=== PATIENT | female | born 1960 | race Caucasian/White ===

== ENCOUNTER 2024-10-16 12:50 | Inpatient (IN) | payer MEDICARE, MEDICAID ==
[~2024-10-16] VITALS: Ht 167.6 cm; Wt 162.6 kg
[~2024-10-16 12:50] MED LIST: BENZ1TAB79; DIGO-31; FLUP10TA
[2024-10-16 13:21] VITALS: RESP 26
[2024-10-16] MEDS: SODIUM CHLORIDE 0.9% 1,000 ML IV ONE (13:30)
[2024-10-16] MEDS: PIPERACILLIN/TAZO 3.375G/50ML 50 ML IV ONE (13:30)
[2024-10-16 13:33] LABS: CHLORIDE 87 mEq/L (98-107); POTASSIUM 3.3 mEq/L (3.5-5.1); SODIUM 136 mEq/L (136-145)
[2024-10-16 13:34] LABS: CALCIUM 9.2 mg/dL (8.7-10.4)
[2024-10-16 13:35] LABS: BASOPHILS % 0.3 % (0.0-2.0); EOSINOPHILS % 2.4 % (0.0-5.0); HEMATOCRIT. 44.9 % (36.0-48.0); HEMOGLOBIN. 14.6 g/dL (12.0-16.0); LYMPHOCYTES % 30.6 % (20.0-50.0); MEAN CORPUSCULAR HEMOGLOBIN 31.9 pg (28.0-32.0); MEAN CORPUSCULAR HGB CONC 32.6 g/dL (31.0-37.0); MEAN CORPUSCULAR VOLUME 97.9 fL (81.0-99.0); MONOCYTES % 10.2 % (2.0-8.0); NEUTROPHILS % 56.5 % (40.0-76.0); PLATELET 112 x1000/uL (130-400); RED BLOOD CELL COUNT 4.58 mill/uL (4.2-5.4); RED CELL DISTRIBUTION WIDTH 16.9 % (11.6-14.6)
[2024-10-16 13:39] LABS: CREATININE 0.5 mg/dL (0.6-1.0); GLUCOSE 121 mg/dL (70-105); TROPONIN I HIGH SENSITIVITY 5 ng/L (3.0-34); UREA NITROGEN BLOOD 8 mg/dL (9-23)
[2024-10-16 13:41] LABS: BG BASE EXCESS 13.9 mmol/L (-2.0-3.0); BG CARBOXYHEMOGLOBIN 2.2 % (0.5-1.5); BG DEOXYHEMOGLOBIN 3.5 % (0.0-5.0); BG FRACTION INSPIRED OXYGEN 100; BG HCO3 ACT 45.3 mmol/L (21.0-28.0); BG METHEMOGLOBIN 0.3 % (0.5-1.5); BG OXYGEN SATURATION 96.4 % (94.0-98.0); BG PCO2 93.5 mmHg (32.0-45.0); BG PH 7.303 (7.350-7.450); BG PO2 92.8 mmHg (83.0-108.0); BG SAMPLE SITE RIGHT RADIAL; BG VENT MODE MASK - BIPAP
[2024-10-16 13:41] LABS: ALANINE AMINOTRANSFERASE 15 IU/L (10-49); ALBUMIN 3.7 g/dL (3.2-4.8); ASPARTATE AMINOTRANSFERASE 21 IU/L (<34); BILIRUBIN DIRECT 0.1 mg/dL (<=3.0); BILIRUBIN TOTAL 0.4 mg/dL (0.1-1.0); DIFFERENTIAL COMMENT 1; PROTEIN TOTAL 7.7 g/dL (6.0-8.3)
[2024-10-16 13:50] LABS: CARBON DIOXIDE > 40 mEq/L (21-32)
[2024-10-16 13:51] LABS: PROTHROMBIN TIME 10.4 sec (9.6-11.0)
[2024-10-16] MEDS: VANCOMYCIN 1G PREMIX 200 ML IV ONE (14:02)
[2024-10-16] MEDS ORDERED: DOCUSATE SODIUM 100MG CAPSULE PO PRN (15:15)
[2024-10-16] MEDS ORDERED: ONDANSETRON HCL 4MG/2ML INJ IV PRN (15:15)
[2024-10-16] MEDS ORDERED: GUAIFENESIN 200MG/10ML SUGAR FREE UDC PO PRN (15:15)
[2024-10-16] MEDS ORDERED: CLONIDINE 0.1MG TABLET PO PRN (15:15)
[2024-10-16] MEDS ORDERED: MAGNESIUM/ALUMINUM HYDROXIDE/SIMETHICONE 30ML UDC PO PRN (15:15)
[2024-10-16] MEDS ORDERED: IPRATROPIUM/ALBUTEROL 0.5-3(2.5)MG/3ML NEB HHN PRN (15:15)
[2024-10-16] MEDS ORDERED: DEXTROSE 50% WATER 50ML SYRINGE IV PRN (16:15)
[2024-10-16] MEDS: SODIUM CHLORIDE 0.9% 1,000 ML IV SCH (16:43)
[2024-10-16] MEDS: VANCOMYCIN 1GM/200ML PMX (BAXTER) IV NR (16:43)
[2024-10-16 17:01] LABS: TRIGLYCERIDE 103 mg/dL (0-150)
[2024-10-16 17:02] LABS: LDL CHOLESTEROL 72 mg/dL (5-100)
[2024-10-16 17:03] LABS: ALBUMIN 2.6 g/dL (3.2-4.8); CHOLESTEROL 110 mg/dL (<200); HDL CHOLESTEROL < 20 mg/dL (>65); PHOSPHORUS 3.3 mg/dL (2.5-4.9)
[2024-10-16] MEDS: ENOXAPARIN 40MG/0.4ML SYR SUBCUT SCH (17:03)
[2024-10-16] MEDS: BLOOD SUGAR DIAGNOSTIC STRIP TEST SCH (18:05)
[2024-10-16] MEDS: POTASSIUM CHLORIDE 40 MEQ in DEXT 5% WATER 250 ML IV NR (18:05)
[2024-10-16] MEDS: INSULIN LISPRO 100 UNITS/ML SUBCUT SCH (18:06)
[2024-10-16] MEDS: IPRATROPIUM/ALBUTEROL 0.5-3(2.5)MG/3ML NEB HHN SCH (18:15)
[2024-10-16 18:16] VITALS: RESP 20
[2024-10-16 18:43] VITALS: RESP 24
[2024-10-16 19:45] VITALS: RESP 24
[2024-10-16] MEDS: ACETAMINOPHEN 325MG TABLET PO PRN (20:01)
[2024-10-16 22:09] VITALS: RESP 28
[2024-10-16] MEDS: PIPERACILLIN/TAZO 3.375G/50ML 50 ML IV SCH (23:45)
[2024-10-16 23:49] VITALS: RESP 25
[2024-10-17] VITALS (17 sets, daily range): BP systolic 57–123; BP diastolic 38–87; PULSE 75–84; RESP 12–29; TEMP 35.7–36.6; O2SAT 40–98
[2024-10-17] MEDS: VANCOMYCIN 1GM/200ML PMX (BAXTER) IV SCH ×2 (04:33→13:55)
[2024-10-17 06:29] LABS: HEMATOCRIT 43.9 % (36.0-48.0); HEMOGLOBIN 14.2 g/dL (12.0-16.0); MEAN CORPUSCULAR HEMOGLOBIN 31.6 pg (28.0-32.0); MEAN CORPUSCULAR HGB CONC 32.3 g/dL (31.0-37.0); MEAN CORPUSCULAR VOLUME 97.6 fL (81.0-99.0); PLATELET 105 x1000/uL (130-400); RED CELL DISTRIBUTION WIDTH 16.6 % (11.6-14.6); WHITE BLOOD COUNT 4.3 x1000/uL (4.5-11.0)
[2024-10-17 06:48] LABS: CHLORIDE 87 mEq/L (98-107); POTASSIUM 2.9 mEq/L (3.5-5.1); SODIUM 136 mEq/L (136-145)
[2024-10-17 06:50] LABS: CALCIUM 9.1 mg/dL (8.7-10.4)
[2024-10-17 06:54] LABS: CREATININE 0.6 mg/dL (0.6-1.0); GLUCOSE 117 mg/dL (70-105); UREA NITROGEN BLOOD 7 mg/dL (9-23)
[2024-10-17 06:55] LABS: TROPONIN I HIGH SENSITIVITY 5 ng/L (3.0-34)
[2024-10-17 06:56] LABS: ALANINE AMINOTRANSFERASE 15 IU/L (10-49); ALBUMIN 3.8 g/dL (3.2-4.8); ASPARTATE AMINOTRANSFERASE 22 IU/L (<34); BILIRUBIN TOTAL 0.4 mg/dL (0.1-1.0)
[2024-10-17 06:57] LABS: PROTEIN TOTAL 7.7 g/dL (6.0-8.3)
[2024-10-17 08:21] LABS: CARBON DIOXIDE > 40 mEq/L (21-32)
[2024-10-17 08:52] LABS: BG BASE EXCESS 10.2 mmol/L (-2.0-3.0); BG CARBOXYHEMOGLOBIN 1.5 % (0.5-1.5); BG DEOXYHEMOGLOBIN 8.6 % (0.0-5.0); BG FRACTION INSPIRED OXYGEN 40; BG METHEMOGLOBIN 0.3 % (0.5-1.5); BG OXYGEN SATURATION 91.2 % (94.0-98.0); BG OXYHEMOGLOBIN 89.6 % (94.0-98.0); BG PCO2 91.3 mmHg (32.0-45.0); BG PO2 67.5 mmHg (83.0-108.0); BG SAMPLE SITE LEFT RADIAL; BG TOTAL HEMOGLOBIN 13.7 g/dL (12.0-16.0); BG VENT MODE NASAL CANNULA
[2024-10-17] MEDS: POTASSIUM CHLORIDE 20MEQ TABLET SR PO NR (08:56)
[2024-10-17] MEDS: PANTOPRAZOLE SODIUM 40 MG/VIAL IV SCH (08:56)
[2024-10-17] MEDS ORDERED: VANCOMYCIN 1GM/200ML PMX (BAXTER) IV SCH (09:00)
[2024-10-17] MEDS: POTASSIUM CHLORIDE 40 MEQ in DEXT 5% WATER 230 ML IV NR (09:57)
[2024-10-17 14:02] LABS: BG BASE EXCESS 9.7 mmol/L (-2.0-3.0); BG CARBOXYHEMOGLOBIN 1.2 % (0.5-1.5); BG FRACTION INSPIRED OXYGEN 40; BG HCO3 ACT 39.7 mmol/L (21.0-28.0); BG METHEMOGLOBIN 0.3 % (0.5-1.5); BG OXYGEN SATURATION 90.9 % (94.0-98.0); BG OXYHEMOGLOBIN 89.5 % (94.0-98.0); BG PCO2 81.2 mmHg (32.0-45.0); BG PH 7.307 (7.350-7.450); BG PO2 63.3 mmHg (83.0-108.0); BG SAMPLE SITE LEFT RADIAL; BG TOTAL HEMOGLOBIN 14.8 g/dL (12.0-16.0); BG TOTAL RESPIRATORY RATE 24 b/min; BG VENT MODE MASK - CPAP
[2024-10-17] MEDS: ACETAMINOPHEN 325MG TABLET PO PRN (17:14)
[2024-10-17 17:24] LABS: TROPONIN I HIGH SENSITIVITY 5 ng/L (3.0-34)
[2024-10-17 22:52] LABS: *AMPHETAMINES SCREEN URINE NEGATIVE (NEGATIVE); *BARBITURATES SCREEN URINE NEGATIVE (NEGATIVE); *BENZODIAZEPINES SCREEN URINE NEGATIVE (NEGATIVE); *COCAINE SCREEN URINE NEGATIVE (NEGATIVE); CANNABINOID URINE SCREEN NEGATIVE (NEGATIVE); METHADONE URINE SCREEN NEGATIVE (NEGATIVE); OPIATES URINE SCREEN NEGATIVE (NEGATIVE); PHENCYCLIDINE URINE SCREEN NEGATIVE (NEGATIVE)
[2024-10-17 22:53] LABS: ECSTASY MDMA SCREEN URINE NEGATIVE (NEGATIVE)
[2024-10-17 23:10] LABS: CLARITY URINE CLEAR (CLEAR); COLOR URINE YELLOW (YELLOW); GLUCOSE URINE NEGATIVE (NEGATIVE); KETONES URINE NEGATIVE (NEGATIVE); LEUKOCYTE ESTERASE URINE NEGATIVE (NEGATIVE); NITRITE URINE NEGATIVE (NEGATIVE); OCCULT BLOOD URINE NEGATIVE (NEGATIVE); PROTEIN URINE NEGATIVE (NEGATIVE); SPECIFIC GRAVITY URINE 1.007 (1.005-1.030)
[2024-10-18] VITALS (15 sets, daily range): BP systolic 96–134; BP diastolic 55–88; PULSE 69–101; RESP 11–27; TEMP 36.1–37.1; O2SAT 92–97
[2024-10-18 07:22] LABS: CHLORIDE 91 mEq/L (98-107); POTASSIUM 4.1 mEq/L (3.5-5.1); SODIUM 138 mEq/L (136-145)
[2024-10-18 07:23] LABS: CALCIUM 9.6 mg/dL (8.7-10.4)
[2024-10-18 07:28] LABS: CREATININE 0.5 mg/dL (0.6-1.0); GLUCOSE 88 mg/dL (70-105)
[2024-10-18 08:26] LABS: HEMATOCRIT. 40.8 % (36.0-48.0); HEMOGLOBIN. 13.3 g/dL (12.0-16.0); MEAN CORPUSCULAR HEMOGLOBIN 31.3 pg (28.0-32.0); MEAN CORPUSCULAR HGB CONC 32.7 g/dL (31.0-37.0); MEAN CORPUSCULAR VOLUME 95.8 fL (81.0-99.0); MEAN PLATELET VOLUME 9.5 fl (7.4-10.4); PLATELET 110 x1000/uL (130-400); RED BLOOD CELL COUNT 4.26 mill/uL (4.2-5.4); RED CELL DISTRIBUTION WIDTH 16.2 % (11.6-14.6); WHITE BLOOD COUNT 4.4 x1000/uL (4.5-11.0)
[2024-10-18 08:28] LABS: CARBON DIOXIDE > 40 mEq/L (21-32); UREA NITROGEN BLOOD < 5 mg/dL (9-23)
[2024-10-18 08:51] LABS: DIFFERENTIAL COMMENT 1
[2024-10-18 09:03] LABS: BG BASE EXCESS 13.6 mmol/L (-2.0-3.0); BG CARBOXYHEMOGLOBIN 1.4 % (0.5-1.5); BG DEOXYHEMOGLOBIN 5.9 % (0.0-5.0); BG FRACTION INSPIRED OXYGEN 32; BG HCO3 ACT 39.8 mmol/L (21.0-28.0); BG METHEMOGLOBIN 0.3 % (0.5-1.5); BG OXYHEMOGLOBIN 92.4 % (94.0-98.0); BG PCO2 55.8 mmHg (32.0-45.0); BG PH 7.471 (7.350-7.450); BG PO2 67.1 mmHg (83.0-108.0); BG SAMPLE SITE LEFT RADIAL; BG TOTAL HEMOGLOBIN 14.4 g/dL (12.0-16.0); BG VENT MODE NASAL CANNULA
[2024-10-18 10:24] LABS: INFLUENZA TYPE A Presumptive Negative (Pres. Neg.)
[2024-10-18 10:25] LABS: INFLUENZA TYPE B Presumptive Negative (Pres. Neg.)
[2024-10-18 10:26] LABS: RESPIRATORY SYNCYTIAL VIRUS Not Detected (Not Detectd)
[2024-10-18] MEDS ORDERED: AMOX1TAB16 MT (16:08)
[2024-10-18] MEDS ORDERED: AZIT250T12 PO (16:08)
[2024-10-19] VITALS (14 sets, daily range): BP systolic 113–146; BP diastolic 50–99; PULSE 66–96; RESP 13–26; TEMP 36.8–37.1; O2SAT 89–96
[2024-10-19 08:09] LABS: CHLORIDE 94 mEq/L (98-107); POTASSIUM 3.6 mEq/L (3.5-5.1); SODIUM 139 mEq/L (136-145)
[2024-10-19 08:10] LABS: CARBON DIOXIDE 38 mEq/L (21-32)
[2024-10-19 08:11] LABS: CALCIUM 9.4 mg/dL (8.7-10.4)
[2024-10-19 08:15] LABS: CREATININE 0.4 mg/dL (0.6-1.0); GLUCOSE 94 mg/dL (70-105); UREA NITROGEN BLOOD 6 mg/dL (9-23)
[2024-10-19] MEDS: CITALOPRAM HYDROBROMIDE 10MG TABLET PO SCH (09:45)
[2024-10-19] MEDS: VANCOMYCIN 1GM/200ML PMX (BAXTER) IV SCH (12:47)
[2024-10-19] MEDS ORDERED: RISPERIDONE 1MG TABLET PO SCH (21:00)
[2024-10-19] MEDS ORDERED: CLONAZEPAM 0.5MG TABLET PO SCH (21:00)
[2024-10-19] MEDS ORDERED: OLANZAPINE 10MG TABLET PO SCH (21:00)
[2024-10-20 00:12] LABS: PLATELET ESTIMATE DECREASED
== END 2024-10-19 23:12 | DRG 871 ==
LOC: ER 12:50 → 5EST 14:11
PROVIDERS: ADMIT Internal Medicine; ATTEND Internal Medicine
PROC: 5A09357 Assistance with Respiratory Ventilation, Less than 24 Consecutive Hours, Continuous Positive Airway Pressure (ICD-10-PCS; principal; 2024-10-16)
PROC: 5A09357 Assistance with Respiratory Ventilation, Less than 24 Consecutive Hours, Continuous Positive Airway Pressure (ICD-10-PCS; 2024-10-17)
PROC: 5A09357 Assistance with Respiratory Ventilation, Less than 24 Consecutive Hours, Continuous Positive Airway Pressure (ICD-10-PCS; 2024-10-18)
DX: A41.9 Sepsis, unspecified organism (principal); G93.41 Metabolic encephalopathy; J18.9 Pneumonia, unspecified organism; J96.02 Acute respiratory failure with hypercapnia; J44.0 Chronic obstructive pulmonary disease with (acute) lower respiratory infection; Z68.43 Body mass index [BMI] 50.0-59.9, adult; E87.29 Other acidosis; E66.2 Morbid (severe) obesity with alveolar hypoventilation; E11.9 Type 2 diabetes mellitus without complications; E87.6 Hypokalemia; I10 Essential (primary) hypertension; E03.9 Hypothyroidism, unspecified; E78.00 Pure hypercholesterolemia, unspecified; F20.9 Schizophrenia, unspecified; G40.909 Epilepsy, unspecified, not intractable, without status epilepticus; F31.9 Bipolar disorder, unspecified; Z88.2 Allergy status to sulfonamides; Z99.81 Dependence on supplemental oxygen
CPT/HCPCS: 36415; 36600; 71045; 80048; 80053; 80061; 80076; 80202; 80305; 81003; 82040; 82375; 82805; 82962; 83036; 83605; 83735; 83880; 84100; 84145; 84484; 85025; 85027; 87420; 87804; 93005; 93970; 94070; 94640; 94660; 94664; 97166; 98960; 99291; A4606; J1650; J2470; J2543; J3370; J3480; J7030; J7060